=== PATIENT | male | born 1995 | race Caucasian/White ===

== ENCOUNTER 2016-10-29 04:33 | Emergency (ER) | payer OTHER ==
[~2016-10-29] VITALS: Ht 180.3 cm; Wt 77.6 kg
[2016-10-29 04:41] VITALS: TEMP 36.8; Ht 180.3 cm; Wt 77.6 kg
[2016-10-29] MEDS ORDERED: LIDOCAINE/EPINEPHRINE 1% 20 ML VIAL INFIL ONE (05:15)
[2016-10-29] MEDS ORDERED: AMOXICIL/CLAVU 875MG HOME PACK PO ONE (05:15)
[2016-10-29] MEDS ORDERED: AMOX875T PO (05:23)
--- NOTE | 2016-10-29 05:32 | EMERGENCY ROOM VISIT NOTE ---
History First contact with patient: 04:56 Chief Complaint: LACERATION/CUT (SUT/DERMABOND) Stated Complaint: DEEP CUT IN LIP Nursing Triage Summary: Lac to inside of left check obtained after fall. Denies LOC or other injuries. History of Present Illness The patient is a 21 year old male who presents to the Emergency Room with complaints of open mouth wound after he tripped and fell hitting his face on the concrete earlier tonight. Patient states he bit his mouth sustained an open mouth wound. Patient denies headache, neck pain, chest pain, dyspnea, facial pain, dental pain, loss of conscious, abdominal pain or any other medical complaints. Tetanus is current. Review of Systems See HPI for pertinent positives & negatives. A total of 10 systems reviewed and were otherwise negative. Past Medical/Surgical History None Social History Smoking Status: Never Smoker Smokeless Tobacco Use: No Alcohol Use: occasionally Drug Use: none Current/Historical Medications Scheduled Amoxicillin & Pot Clavulanate (Augmentin 875-125 mg), 1 TAB PO BID Allergies Coded Allergies: No Known Allergies (Unverified , 10/29/16) Physical Exam Vital Signs Date Time Temp Pulse Resp B/P (MAP) Pulse Ox O2 Delivery O2 Flow Rate FiO2 10/29/16 04:41 36.8 69 18 139/82 97 Room Air Physical Exam VITALS: Vitals are noted on the nurse's note and reviewed by myself. Vital signs stable. GENERAL: Pleasant male, in no acute distress, nondiaphoretic, well-developed well-nourished. SKIN: The skin was without rashes, erythema, edema, or bruising. There is no tenting of the skin. Capillary reflex less than 2 seconds. HEAD: Normocephalic atraumatic. EARS: External auditory canals clear, tympanic membranes pearly capps without erythema or effusion bilaterally. EYES: Pupils equal round and reactive to light and accommodation. Conjunctivae without injection, sclerae without icterus. Extraocular movements intact. NOSE: Patent, turbinates without inflammation or discharge. No sinus tenderness. MOUTH: Mucous membranes moist. 3 cm gaping left bucca mucosa laceration that is bleeding Pharynx without erythema or exudate. Uvula midline. Airway patent. Tongue does not deviate. Dental exam: No loose or chipped teeth Face: Nontender to palpation. Patient can fully open and close mouth without pain. NECK: Supple without nuchal rigidity. No lymphadenopathy. No thyromegaly. Cervical spine is nontender. No JVD. HEART: Regular rate and rhythm without murmurs gallops or rubs. LUNGS: Clear to auscultation bilaterally without wheezes, rales or rhonchi. No dullness to percussion. No retractions or accessory muscle use. ABDOMEN: Positive bowel sounds x 4. Normal tympanic percussion. Soft, nontender, without masses or organomegaly. Montejo sign negative. No guarding or rebound tenderness. MUSCULOSKELETAL: No muscle atrophy, erythema, or edema noted. NEURO: Patient was alert and oriented to person place and time. Normal sensation to light and sharp touch. No focal neurological deficits. Medical Decision & Procedures Medications Administered Medications (Trade) Dose Ordered Sig/Delmi Route Start Time Stop Time Status Last Admin Dose Admin Amoxicillin/ Clavulanate Potassium (Augmentin 875MG Home Pack) 1 homepack UD ONCE PO 10/29/16 05:15 10/29/16 05:16 DC 10/29/16 05:15 1 HOMEPACK Procedure Location: mouth Total length: 3cm Complexity: simple Verbal consent was obtained after the risks and benefits were explained, including but not limited to bleeding, scarring, infection, pain, and bone/joint /nerve damage. At this time, the risks of the procedure are less than the risks of NOT performing the procedure. A time out was taken and the correct patient and site identified. The skin was prepped with betadine. The target area was anesthetized with 3 ml of 1% lidocaine with epinephrine. Copious irrigation was performed using nss. The skin was re-prepped with betadine and a sterile field set. The wound was explored for foreign bodies and none found. Examination revealed no injury to deep structures such as tendons, bone, or significant blood vessels. Debridement was not performed. The wound edges were approximated using 5, 5-0 simple interrupted Vicryl sutures. Hemostasis and excellent approximation was achieved. Antibacterial ointment and a sterile dressing applied. Detailed wound care instructions and signs and symptoms of infection reviewed with the pt. No complications and the patient tolerated the procedure well. ED Course Prior records/ancillary studies reviewed. Triage Nursing notes reviewed. The patient's history was concerning for traumatic head injury Differential diagnosis: Etiologies such as concussion, contusion, fracture, subdural hematoma, epidural hematoma, intraparenchymal hemorrhage, as well as other traumatic pathologies were entertained. Physical examination findings: As above. ER treatment provided: Laceration repaired as above On reassessment the patient felt better. Diagnostics interpreted by me: Deferred It appears the patient has a mild head injury with open mouth wound that was repaired as above. Patient was neurovascularly and neurologically intact. He is well-appearing. No other injuries are noted. No loss of consciousness. GCS 15. Patient has no open mouth wound from biting and Was Started on Antibiotics. He Is Advised to Follow-Up Family Care in A Few Days or Here in the ER Sooner for Headache, Fevers, Swelling, Worsening Signs or Symptoms or As Needed.. By the evaluation outlined above emergent etiologies such as fracture, subdural hematoma, epidural hematoma, intraparenchymal hemorrhage, as well as others were deemed relatively unlikely. The pt informed about the findings as listed above. All questions were answered and pleased with the treatment. Return instructions were outlined and the patient was discharged in stable condition. Outpatient Prescription Management: Augmentin Referral: The patient was referred back to their primary care physician for follow-up in 2 to 3 days for a recheck of the current condition. Medical Decision As above Impression Primary Impression: Open mouth wound Additional Impression: Mild closed head injury Departure Information Dispostion Home / Self-Care Condition GOOD Prescriptions Amoxicillin & Pot Clavulanate (Augmentin 875-125 mg) 1 Tab Tab 1 TAB PO BID for 9 Days, #18 TAB Prov: Capri Carmichael PA-C 10/29/16 Forms HOME CARE DOCUMENTATION FORM, IMPORTANT VISIT INFORMATION Patient Instructions [facility], ED Laceration Mouth Additional Instructions Warm saltwater gargles 3 times a day. Sutures will dissolve in about a month. Amoxicillin Clavulanate (Augmentin) 875mg: Take one pill twice daily for 10 days for your infection. All antibiotics can cause diarrhea. If this occurs and you feel worse or it does not resolve in 1-2 days follow up with your doctor or return to the Emergency Department as this could be signs of serious underlying problems. Any medication can cause an allergic reaction, stop the pills immediately and return to the ER for rash, hives, breathing difficulties, or swelling. Ibuprofen(Motrin, Advil) may be used for fever or pain. Use 600mg every six hours as needed. Take with food. Avoid using more than 2400mg in a 24 hour period. Do not use 2400mg per day for more than three consecutive days without physician direction. Prolonged inappropriate use can lead to stomach upset or ulcers. (AND/OR) Acetaminophen(Tylenol) may be used for fever or pain. Use 1000mg every six hours as needed. Avoid using more than 3000mg in a 24 hour period. Rest and drink plenty of fluids. Continue current medications. Return to the ER for severe pain, fevers, spreading redness, or any worsening of your condition. Follow up with your primary physician within 2-3 days for a recheck of the current condition. Problem Qualifiers Primary Impression: Open mouth wound Encounter type: initial encounter Qualified Codes: S01.502A - Unspecified open wound of oral cavity, initial encounter Additional Impression: Mild closed head injury Encounter type: initial encounter Qualified Codes: S09.90XA - Unspecified injury of head, initial encounter
[2016-10-29 05:34] VITALS: BP 129/86; PULSE 76; O2SAT 98
== END 2016-10-29 05:36 | disposition home or self-care (01) ==
LOC: C.EDB 04:34
DX: S01.512A Laceration without foreign body of oral cavity, initial encounter (principal); W01.198A Fall on same level from slipping, tripping and stumbling with subsequent striking against other object, initial encounter; S09.90XA Unspecified injury of head, initial encounter